=== PATIENT | female | born 2005 | race Caucasian/White ===

== ENCOUNTER → 2023-12-17 | Outpatient (REF) | payer OTHER | LOC: M LAB REF 16:28 | PROVIDERS: ATTEND Nurse Practitioner Family | DX: R30.0 Dysuria (principal); N91.2 Amenorrhea, unspecified; R11.0 Nausea ==

== ENCOUNTER 2025-02-27 14:28 | Emergency (ER) | payer OTHER ==
[~2025-02-27] VITALS: Ht 162.6 cm; Wt 92.2 kg
[2025-02-27 16:35] LABS: BASO # 0.1 10^3/uL (0.0-0.2); BASO % 0.5 % (0.0-1.0); EOS # 0.2 10^3/uL (0.0-0.5); EOS % 1.7 % (0.0-3.0); HEMATOCRIT 44.4 % (36.0-47.0); HEMOGLOBIN 15.1 g/dl (12.0-15.5); LYMPH # 2.8 10^3/uL (1.5-5.0); LYMPH % 29.3 % (24.0-44.0); MEAN CORPUSCULAR VOLUME 88.3 fl (80.0-96.0); MONO # 0.8 10^3/uL (0.0-0.8); MONO % 8.4 % (2.0-8.0); NEUTROPHILS # 5.7 10^3/uL (1.5-8.5); NEUTROPHILS % 59.6 % (36.0-66.0); PLATELET COUNT, AUTOMATED 229 10^3/uL (150-450); RED BLOOD COUNT 5.03 10^6/uL (4.00-5.40); WHITE BLOOD COUNT 9.6 10^3/uL (4.0-10.0)
[2025-02-27 16:57] LABS: KETONE, URINE AUTO RFX NEGATIVE (NEGATIVE); MUCUS, URINE RFX SMALL (NEGATIVE); NITRITE, URINE AUTO RFX NEGATIVE (NEGATIVE); RBC, URINE AUTO RFX 1 /HPF (0-3); SQUAM EPITHELIAL CELL UR AURFX 3 /HPF (0-6); WBC, URINE AUTO RFX 2 /HPF (0-3)
[2025-02-27 17:00] LABS: BLOOD UREA NITROGEN 10 MG/DL (9-23); CARBON DIOXIDE LEVEL 26 MMOL/L (20-31); CHLORIDE LEVEL 105 MMOL/L (98-107); CREATININE FOR GFR 0.64 MG/DL (0.55-1.30); GLOMERULAR FILTRATION RATE > 90.0 (>60); GLUCOSE, FASTING 88 MG/DL (60-100); POTASSIUM SERUM 4.2 MMOL/L (3.5-5.1); SODIUM LEVEL 140 MMOL/L (136-145)
[2025-02-27 17:02] LABS: LEUKOCYTE ESTERASE UR AUTO RFX 1+ (NEGATIVE)
[2025-02-27 17:13] LABS: HCG, SERUM QUANTITATIVE 34064.2 MIU/ML (<4.2)
[2025-02-27 19:11] VITALS: BP 123/76; TEMP 97.4; O2SAT 100
== END 2025-02-27 20:21 | disposition home or self-care (01) ==
LOC: M ED 14:28
DX: O26.891 Other specified pregnancy related conditions, first trimester (principal); M54.50 Low back pain, unspecified; Z3A.01 Less than 8 weeks gestation of pregnancy

== ENCOUNTER 2025-06-03 10:18 | Outpatient (CLI) | payer OTHER ==
[~2025-06-03] VITALS: Ht 162.6 cm; Wt 96.6 kg
[2025-06-03] MEDS ORDERED: PRENTAB9 PO (11:02)
[2025-06-03] MEDS ORDERED: ASPI81CH33 PO (11:02)
[2025-06-03 11:04] VITALS: BP 132/88
[2025-06-03] MEDS ORDERED: HOME MED LIST COMPLETE! XX SCH (11:05)
[2025-06-03 11:51] LABS: APPEARANCE, URINE CLEAR (CLEAR); BACTERIA, URINE AUTO 1+ (NEGATIVE); BILIRUBIN, URINE AUTO NEGATIVE (NEGATIVE); BLOOD, URINE BLOOD NEGATIVE (NEGATIVE); GLUCOSE, URINE (UA) AUTO NEGATIVE (NEGATIVE); KETONE, URINE AUTO NEGATIVE (NEGATIVE); LEUKOCYTE ESTERASE, URINE AUTO TRACE (NEGATIVE); MUCUS, URINE SMALL (NEGATIVE); NITRITE, URINE AUTO NEGATIVE (NEGATIVE); PROTEIN, URINE AUTO NEGATIVE (NEGATIVE); RBC, URINE AUTO 1 /HPF (0-3); SPECIFIC GRAVITY URINE AUTO 1.004 (1.002-1.035); SQUAMOUS EPITHELIAL CELL UR AU 1 /HPF (0-6); UROBILINOGEN, URINE AUTO 0.2 mg/dL (0.0-2.0); WBC, URINE AUTO 1 /HPF (0-3)
[2025-06-03] MEDS: FLUCONAZOLE 50 MG TABLET PO ONE (11:55)
[2025-06-03 13:12] LABS: Trichomonas vaginalis (AMP) NOT DETECTED (NEGATIVE)
[2025-06-03 13:36] LABS: GC DNA AMPLIFICATION NEGATIVE (NEGATIVE)
[2025-06-03 13:45] VITALS: BP 130/81
== END 2025-06-03 13:45 | disposition home or self-care (01) ==
LOC: M LDO 10:18
PROVIDERS: ATTEND Advanced Practice Midwife
DX: O23.592 Infection of other part of genital tract in pregnancy, second trimester (principal); O09.32 Supervision of pregnancy with insufficient antenatal care, second trimester; B37.9 Candidiasis, unspecified; Z3A.20 20 weeks gestation of pregnancy; Z67.41 Type O blood, Rh negative; Z87.59 Personal history of other complications of pregnancy, childbirth and the puerperium
CPT/HCPCS: 59025; 81001; 87086; 87661; 87810; 87850; G0463

== ENCOUNTER → 2025-06-09 | Outpatient (CLI) | payer OTHER ==
[~2025-06-09] MED LIST: ASPI81CH33 PO; PRENTAB9 PO
== END ==
LOC: M RAD 08:07
PROVIDERS: ATTEND Nurse Practitioner Family
DX: Z34.80 Encounter for supervision of other normal pregnancy, unspecified trimester (principal)

== ENCOUNTER 2025-06-30 10:30 | Outpatient (CLI) | payer OTHER ==
[~2025-06-30] VITALS: Ht 162.6 cm; Wt 98.0 kg
[2025-06-30 10:49] VITALS: BP 131/81; O2SAT 98
[2025-06-30] MEDS ORDERED: HOME MED LIST COMPLETE! XX SCH (12:15)
[2025-06-30 13:04] VITALS: BP 136/100
[2025-06-30 13:05] VITALS: BP 135/94
[2025-06-30] MEDS: ACETAMINOPHEN 500 MG TAB PO PRN (13:54)
[2025-06-30 14:39] VITALS: BP 135/87
[2025-06-30 14:50] LABS: PLATELET COUNT, AUTOMATED 199 10^3/uL (150-450)
[2025-06-30 15:16] LABS: LDH LACTATE DEHYDROGENASE 139 U/L (120-246)
[2025-06-30 15:17] LABS: ALT/SGPT 9 U/L (7.0-40); AST/SGOT 11 U/L (<34); CALCIUM LEVEL 8.5 MG/DL (8.5-10.1); CARBON DIOXIDE LEVEL 25 MMOL/L (20-31); CHLORIDE LEVEL 103 MMOL/L (98-107); CREATININE FOR GFR 0.62 MG/DL (0.55-1.30); GLOMERULAR FILTRATION RATE > 90.0 (>60); POTASSIUM SERUM 3.7 MMOL/L (3.5-5.1); SODIUM LEVEL 137 MMOL/L (136-145)
[2025-06-30 15:18] LABS: TOTAL PROTEIN,RANDOM URINE 12.6 MG/DL (0.0-14.0)
[2025-06-30 15:41] VITALS: BP 146/90
[2025-06-30] MEDS ORDERED: LABE100T40 PO (15:52)
== END 2025-06-30 16:10 | disposition home or self-care (01) ==
LOC: M LDO 10:30
PROVIDERS: ATTEND Obstetrics & Gynecology
DX: O36.8120 Decreased fetal movements, second trimester, not applicable or unspecified (principal); O13.2 Gestational [pregnancy-induced] hypertension without significant proteinuria, second trimester; Z87.59 Personal history of other complications of pregnancy, childbirth and the puerperium; Z3A.24 24 weeks gestation of pregnancy
CPT/HCPCS: 36415; 59025; 76815; 80053; 82570; 83615; 84156; 84550; 85027; G0463

== ENCOUNTER 2025-07-03 19:21 | Outpatient (CLI) | payer OTHER ==
[~2025-07-03] VITALS: Ht 162.6 cm; Wt 98.0 kg
[~2025-07-03 19:21] MED LIST changes: +LABE100T40 PO
[2025-07-03 19:40] VITALS: BP 139/96
[2025-07-03 20:20] LABS: KETONE, URINE AUTO RFX NEGATIVE (NEGATIVE); NITRITE, URINE AUTO RFX NEGATIVE (NEGATIVE); RBC, URINE AUTO RFX 0 /HPF (0-3); SQUAM EPITHELIAL CELL UR AURFX 2 /HPF (0-6); WBC, URINE AUTO RFX 3 /HPF (0-3)
[2025-07-03 20:21] LABS: LEUKOCYTE ESTERASE UR AUTO RFX TRACE (NEGATIVE)
[2025-07-03 20:24] VITALS: BP 139/93
[2025-07-03] MEDS ORDERED: ACET-897 PO (20:40)
[2025-07-03 21:14] LABS: TOTAL PROTEIN,RANDOM URINE 6.1 MG/DL (0.0-14.0)
== END 2025-07-03 21:46 | disposition home or self-care (01) ==
LOC: M LDO 19:21
PROVIDERS: ATTEND Advanced Practice Midwife
DX: O13.2 Gestational [pregnancy-induced] hypertension without significant proteinuria, second trimester (principal); Z3A.24 24 weeks gestation of pregnancy; Z67.41 Type O blood, Rh negative; Z87.59 Personal history of other complications of pregnancy, childbirth and the puerperium
CPT/HCPCS: 59025; 81001; 82570; 84156; 87086; G0463

== ENCOUNTER → 2025-07-15 | Outpatient (CLI) | payer OTHER ==
[~2025-07-15] MED LIST changes: +ACET-897 PO
[2025-07-15 14:51] LABS: PLATELET COUNT, AUTOMATED 198 10^3/uL (150-450)
[2025-07-15 15:21] LABS: GLUCOSE CHALLENGE TEST 1 HOUR 113 MG/DL (LESS THAN 140)
[2025-07-15 15:53] LABS: HIV 1&2 SCREEN NEGATIVE (NEGATIVE)
[2025-07-15 16:00] LABS: HEPATITIS C VIRUS ABY INDEX 0.06 INDEX (<0.8)
[2025-07-15 16:10] LABS: Trichomonas vaginalis (AMP) NOT DETECTED (NEGATIVE)
[2025-07-15 16:33] LABS: GC DNA AMPLIFICATION NEGATIVE (NEGATIVE)
== END ==
LOC: M PLALAB 10:15
PROVIDERS: ATTEND Student in an Organized Health Care Education/Training Program
DX: Z36.89 Encounter for other specified antenatal screening (principal); Z3A.23 23 weeks gestation of pregnancy
CPT/HCPCS: 36415; 82950; 85027; 86780; 86803; 86850; 86900; 86901; 87389; 87661; 87810; 87850; J2790

== ENCOUNTER 2025-07-28 10:22 | Outpatient (CLI) | payer OTHER ==
[~2025-07-28] VITALS: Ht 162.6 cm; Wt 101.9 kg
[2025-07-28] MEDS ORDERED: NIFE1TAB52 PO (10:41)
[2025-07-28 10:43] VITALS: BP 136/93
[2025-07-28 10:58] VITALS: BP 138/92
== END 2025-07-28 12:54 | disposition home or self-care (01) ==
LOC: M LDO 10:22
PROVIDERS: ATTEND Obstetrics & Gynecology
DX: O36.8130 Decreased fetal movements, third trimester, not applicable or unspecified (principal); Z3A.28 28 weeks gestation of pregnancy; Z87.59 Personal history of other complications of pregnancy, childbirth and the puerperium
CPT/HCPCS: 59025; G0463

== ENCOUNTER → 2025-08-07 | Outpatient (CLI) | payer OTHER ==
[~2025-08-07] MED LIST changes: +NIFE1TAB52 PO
== END ==
LOC: M WHC 11:33
PROVIDERS: ATTEND Student in an Organized Health Care Education/Training Program
DX: O36.8390 Maternal care for abnormalities of the fetal heart rate or rhythm, unspecified trimester, not applicable or unspecified (principal); Z3A.00 Weeks of gestation of pregnancy not specified

== ENCOUNTER → 2025-08-14 | Outpatient (CLI) | payer OTHER | LOC: M RAD 12:35 | PROVIDERS: ATTEND Student in an Organized Health Care Education/Training Program | DX: O14.90 Unspecified pre-eclampsia, unspecified trimester (principal); O28.8 Other abnormal findings on antenatal screening of mother ==

== ENCOUNTER → 2025-08-14 | Outpatient (CLI) | payer OTHER | LOC: M WHC 09:32 | PROVIDERS: ATTEND Student in an Organized Health Care Education/Training Program | DX: O28.8 Other abnormal findings on antenatal screening of mother (principal); Z53.9 Procedure and treatment not carried out, unspecified reason ==

== ENCOUNTER 2025-08-17 19:11 | Outpatient (CLI) | payer OTHER ==
[2025-08-17] VITALS (9 sets, daily range): BP systolic 123–179; BP diastolic 74–115
[~2025-08-17] VITALS: Ht 162.6 cm; Wt 105.2 kg
[2025-08-17] MEDS: NIFEdipine 30 MG XL TAB PO STA (19:55)
[2025-08-17 20:11] LABS: BASO # 0.1 10^3/uL (0.0-0.2); BASO % 0.4 % (0.0-1.0); EOS # 0.1 10^3/uL (0.0-0.5); EOS % 1.1 % (0.0-3.0); LYMPH # 2.7 10^3/uL (1.5-5.0); LYMPH % 23.3 % (24.0-44.0); MONO # 1.0 10^3/uL (0.0-0.8); MONO % 9.0 % (2.0-8.0); NEUTROPHILS # 7.4 10^3/uL (1.5-8.5); NEUTROPHILS % 65.2 % (36.0-66.0); PLATELET COUNT, AUTOMATED 194 10^3/uL (150-450)
[2025-08-17] MEDS: NIFEdipine 10 MG CAP PO STA (20:13)
[2025-08-17 20:28] LABS: TOTAL PROTEIN,RANDOM URINE 7.5 MG/DL (0.0-14.0)
[2025-08-17 20:45] LABS: LDH LACTATE DEHYDROGENASE 150 U/L (120-246)
[2025-08-17 20:46] LABS: ALT/SGPT < 9 U/L (7.0-40); AST/SGOT 12 U/L (<34); CREATININE FOR GFR 0.57 MG/DL (0.55-1.30); GLOMERULAR FILTRATION RATE > 90.0 (>60)
[2025-08-17] MEDS: BETAMETHASONE SOLUSPAN 6 MG/ML 5 ML VIAL IM SCH (21:31)
[2025-08-18] VITALS (15 sets, daily range): BP systolic 112–154; BP diastolic 69–95
[2025-08-18] MEDS: NIFEdipine 30 MG XL TAB PO STA (09:40)
[2025-08-18] MEDS ORDERED: REFLB XX ONE (11:29)
== END 2025-08-18 14:35 | disposition home or self-care (01) ==
LOC: M LDO 19:11
PROVIDERS: ATTEND Advanced Practice Midwife
DX: O14.13 Severe pre-eclampsia, third trimester (principal); O09.893 Supervision of other high risk pregnancies, third trimester; O09.13 Supervision of pregnancy with history of ectopic pregnancy, third trimester; Z67.41 Type O blood, Rh negative; Z3A.31 31 weeks gestation of pregnancy
CPT/HCPCS: 36415; 59025; 70544; 70551; 82247; 82570; 83615; 84156; 84450; 84460; 84550; 85025; 96372; 96374; G0463; J0702; J2060

== ENCOUNTER → 2025-08-25 | Outpatient (REF) | payer OTHER ==
[~2025-08-25] MED LIST changes: +NIFE1CAP2 PO
[2025-08-25 13:45] LABS: PLATELET COUNT, AUTOMATED 195 10^3/uL (150-450)
[2025-08-25 13:54] LABS: TOTAL PROTEIN,RANDOM URINE 22.1 MG/DL (0.0-14.0)
== END ==
LOC: M SFHCWAGY 12:35
PROVIDERS: ATTEND Obstetrics & Gynecology
DX: O10.013 Pre-existing essential hypertension complicating pregnancy, third trimester (principal); Z3A.32 32 weeks gestation of pregnancy

== ENCOUNTER → 2025-08-26 | Outpatient (CLI) | payer OTHER | LOC: M WHC 11:39 | PROVIDERS: ATTEND Student in an Organized Health Care Education/Training Program | DX: O14.90 Unspecified pre-eclampsia, unspecified trimester (principal) ==

== ENCOUNTER 2025-08-27 11:41 | Outpatient (CLI) | payer OTHER ==
[~2025-08-27] VITALS: Ht 162.6 cm; Wt 104.0 kg
[~2025-08-27 11:41] MED LIST changes: -NIFE1CAP2 PO
[2025-08-27 11:56] VITALS: BP 138/91
[2025-08-27 12:04] VITALS: BP 130/99
[2025-08-27] MEDS ORDERED: NIFE1CAP2 PO (12:04)
[2025-09-04] MEDS ORDERED: NIFE60TA96 PO (09:56)
[2025-09-04] MEDS ORDERED: MAG-400T7 PO (09:56)
[2025-09-04] MEDS ORDERED: NIFE-3 PO (10:03)
== END 2025-08-27 13:45 | disposition home or self-care (01) ==
LOC: M LDO 11:41
PROVIDERS: ATTEND Obstetrics & Gynecology
DX: O14.03 Mild to moderate pre-eclampsia, third trimester (principal); O10.013 Pre-existing essential hypertension complicating pregnancy, third trimester; Z3A.32 32 weeks gestation of pregnancy
CPT/HCPCS: 59025; G0463

== ENCOUNTER → 2025-09-02 | Outpatient (CLI) | payer OTHER ==
[~2025-09-02] MED LIST changes: +NIFE1CAP2 PO
== END ==
LOC: M WHC 08:00
PROVIDERS: ATTEND Student in an Organized Health Care Education/Training Program
DX: O14.90 Unspecified pre-eclampsia, unspecified trimester (principal)

== ENCOUNTER → 2025-09-02 | Outpatient (CLI) | payer OTHER ==
[~2025-09-02] MED LIST changes: +IBUP600T42 PO; +MAG-400T7 PO; +MM S100C PO; +NIFE-3 PO; +NIFE60TA96 PO; +OXYC1TAB23 PO
[2025-09-02 13:59] LABS: PLATELET COUNT, AUTOMATED 216 10^3/uL (150-450)
[2025-09-02 14:03] LABS: LDH LACTATE DEHYDROGENASE 168 U/L (120-246)
[2025-09-02 14:04] LABS: ALT/SGPT 11 U/L (7.0-40); AST/SGOT 11 U/L (<34); CREATININE FOR GFR 0.57 MG/DL (0.55-1.30); GLOMERULAR FILTRATION RATE > 90.0 (>60)
[2025-09-02 14:27] LABS: TOTAL PROTEIN,RANDOM URINE 15.5 MG/DL (0.0-14.0)
== END ==
LOC: M PLALAB 10:28
PROVIDERS: ATTEND Student in an Organized Health Care Education/Training Program
DX: O10.013 Pre-existing essential hypertension complicating pregnancy, third trimester (principal); Z3A.00 Weeks of gestation of pregnancy not specified

== ENCOUNTER 2025-09-04 14:31 | Outpatient (CLI) | payer OTHER ==
[~2025-09-04] VITALS: Ht 162.6 cm; Wt 105.7 kg
[~2025-09-04 14:31] MED LIST changes: -IBUP600T42 PO; -MM S100C PO; -OXYC1TAB23 PO
[2025-09-04 14:46] VITALS: BP 136/92
[2025-09-04] MEDS ORDERED: HOME MED LIST COMPLETE! XX SCH (14:50)
[2025-09-04] MEDS: BETAMETHASONE SOLUSPAN 6 MG/ML 5 ML VIAL IM ONE (15:03)
== END 2025-09-04 15:10 | disposition home or self-care (01) ==
LOC: M LDO 14:31
PROVIDERS: ATTEND Advanced Practice Midwife
DX: O10.013 Pre-existing essential hypertension complicating pregnancy, third trimester (principal); O14.13 Severe pre-eclampsia, third trimester; Z3A.33 33 weeks gestation of pregnancy
CPT/HCPCS: 59025; 96372; G0463; J0702

== ENCOUNTER 2025-09-07 09:43 | Inpatient (IN) | payer OTHER ==
[2025-09-07] VITALS (11 sets, daily range): BP systolic 118–136; BP diastolic 74–105; TEMP 97.8–98.2; O2SAT 96–98
[~2025-09-07] VITALS: Ht 162.6 cm; Wt 105.9 kg
[2025-09-07] MEDS ORDERED: LR 1,000 ML IV SCH ×2 (10:45→14:10)
[2025-09-07] MEDS ORDERED: ceFAZolin SOD 1 GM in DEXTROSE 5% (D5W) ADV/MINI-BAG 50 ML IV ONE (10:50)
[2025-09-07] MEDS ORDERED: PHENYLephrine 500MCG 5ML (100MCG/ML) SYRINGE As Ordered ONE (11:32)
[2025-09-07] MEDS ORDERED: dexAMETHasone 4 MG/ML 1 ML VIAL As Ordered ONE (11:32)
[2025-09-07] MEDS ORDERED: KETOROLAC 30 MG/ML 1 ML VIAL As Ordered ONE (11:32)
[2025-09-07] MEDS ORDERED: ONDANSETRON 4MG/2ML VIAL As Ordered ONE (11:32)
[2025-09-07] MEDS ORDERED: OXYTOCIN 30UNITS IN 0.9% NaCl 500ML IV BAG IV ONE (11:33)
[2025-09-07] MEDS ORDERED: ACETAMINOPHEN 1000MG/100ML IV BAG As Ordered ONE (11:35)
[2025-09-07] MEDS ORDERED: MORPHINE PRES-FREE INJ 10 MG/10 ML VIAL As Ordered ONE (11:36)
[2025-09-07 11:52] LABS: PLATELET COUNT, AUTOMATED 193 10^3/uL (150-450)
[2025-09-07 12:09] LABS: HIV 1&2 SCREEN NEGATIVE (NEGATIVE)
[2025-09-07 12:17] LABS: HEPATITIS C VIRUS ABY INDEX < 0.02 INDEX (<0.8)
[2025-09-07] MEDS ORDERED: BICITRA 30 ML SOLN UDC PO ONE (12:25)
[2025-09-07] MEDS ORDERED: MIDAZOLAM INJ 2 MG/2 ML VIAL As Ordered ONE (12:38)
[2025-09-07] MEDS: ceFAZolin SODIUM 2 GM in DEXTROSE 5% (D5W) ADV/MINI-BAG 50 ML IV ONE (12:53)
[2025-09-07] MEDS: BICITRA 30 ML SOLN UDC PO ONE (12:54)
[2025-09-07] MEDS ORDERED: ACETAMINOPHEN 650 MG SUPP PR ONE (13:15)
[2025-09-07] MEDS ORDERED: ONDANSETRON 4MG/2ML VIAL IV PRN ×2 (14:10→14:50)
[2025-09-07] MEDS ORDERED: SIMETHICONE 80MG CHEW TAB PO PRN (14:10)
[2025-09-07] MEDS ORDERED: ONDANSETRON 4MG TAB PO PRN (14:10)
[2025-09-07] MEDS: OXYTOCIN DRIP 30 UNITS in IV 1 EA IV SCH (14:10)
[2025-09-07] MEDS ORDERED: DOCUSATE SODIUM 100 MG CAPSULE PO PRN (14:10)
[2025-09-07] MEDS ORDERED: ACETAMINOPHEN 325 MG TAB PO PRN (14:10)
[2025-09-07] MEDS ORDERED: MORPHINE 2 MG/ML 1 ML VIAL IV PRN (14:10)
[2025-09-07] MEDS: MAG Sulf (L&D) 4 GM/100 ML 4 GM in IV 1 EA IV ONE (14:42)
[2025-09-07] MEDS: LR 1,000 ML IV SCH (14:42)
[2025-09-07] MEDS ORDERED: NALOXONE INJ 0.4 MG/1 ML VIAL IV PRN ×2 (14:50)
[2025-09-07] MEDS: SLF 3 ML SYR IV SCH (14:50)
[2025-09-07] MEDS ORDERED: **NOTE PATIENT COMMENT** MISC XX SCH (14:50)
[2025-09-07] MEDS ORDERED: diphenhydrAMINE 50 MG/ML VIAL IV PRN (14:50)
[2025-09-07] MEDS: MAG Sulf (OBGYN) 20GM/500ML 20,000 MG in IV 1 EA IV SCH (15:15)
[2025-09-07] MEDS: HYDROMORPHONE HCL 0.5 MG/0.5 ML SYRINGE IV PRN (15:20)
[2025-09-07] MEDS ORDERED: IBUP600T42 PO (17:05)
[2025-09-07] MEDS ORDERED: OXYC1TAB23 PO (17:05)
[2025-09-07] MEDS ORDERED: MM S100C PO (17:05)
[2025-09-07] MEDS: NIFEdipine 30 MG XL TAB PO SCH (20:35)
[2025-09-07] MEDS: KETOROLAC 30 MG/ML 1 ML VIAL IV SCH (20:35)
[2025-09-08] VITALS (18 sets, daily range): BP systolic 114–136; BP diastolic 32–94; TEMP 96.1–98.1; O2SAT 97–100
[2025-09-08 06:46] LABS: PLATELET COUNT, AUTOMATED 198 10^3/uL (150-450)
[2025-09-08] MEDS: PRENATAL VITAMINS CHEWABLE TABLET PO SCH (08:27)
[2025-09-08] MEDS: ENOXAPARIN 40 MG/0.4 ML SYRINGE (J1650 PER 10MG) SC SCH (08:27)
[2025-09-08] MEDS: NIFEdipine 30 MG XL TAB PO SCH (08:28)
[2025-09-08] MEDS: IBUPROFEN 800 MG TAB PO SCH (15:31)
[2025-09-08] MEDS: ACETAMINOPHEN 500 MG TAB PO PRN (17:04)
[2025-09-08] MEDS: RHOGAM 300MCG (1500IU) INJ IM SCH (17:05)
[2025-09-09 02:00] VITALS: BP 128/81; O2SAT 98
[2025-09-09 06:15] VITALS: BP 129/71; O2SAT 99
[2025-09-09] MEDS: MEASLES,MUMPS,RUBELLA VACCINE INJ (MMR-II) SC.IMMUN ONE (09:50)
[2025-09-09 10:00] VITALS: BP 129/86; O2SAT 100
[2025-09-09 14:00] VITALS: BP 137/86; O2SAT 98
[2025-09-09 18:00] VITALS: BP 140/85; O2SAT 100
[2025-09-09 21:11] VITALS: BP 138/80; O2SAT 98
[2025-09-10 02:00] VITALS: BP 134/79; O2SAT 96
[2025-09-10 06:00] VITALS: BP 136/78; O2SAT 98
[2025-09-10 08:22] VITALS: BP 131/85
[2025-09-10] MEDS: FLUZONE VACCINE TRI PF(25-26) 0.5ML SYRINGE IM.IMMUN ONE (09:15)
== END 2025-09-10 10:34 | disposition home or self-care (01) | DRG 773 ==
LOC: M LDI 09:43 → M OBS 16:11
PROVIDERS: ADMIT Student in an Organized Health Care Education/Training Program; ATTEND Student in an Organized Health Care Education/Training Program
PROC: 10D00Z1 Extraction of Products of Conception, Low, Open Approach (ICD-10-PCS; principal; 2025-09-07 12:00)
DX: O32.1XX0 Maternal care for breech presentation, not applicable or unspecified (principal); O14.14 Severe pre-eclampsia complicating childbirth; Z3A.34 34 weeks gestation of pregnancy; Z79.82 Long term (current) use of aspirin; Z79.899 Other long term (current) drug therapy; Z37.0 Single live birth